=== PATIENT | male | born 1995 | race Caucasian/White ===

== ENCOUNTER 2016-05-24 17:39 | Emergency (ER) | payer OTHER ==
[~2016-05-24] VITALS: Ht 188 cm; Wt 91.0 kg
[2016-05-24 17:48] VITALS: TEMP 36.9; Ht 188 cm; Wt 91.0 kg
--- NOTE | 2016-05-24 18:59 | DIAGNOSTIC IMAGING REPORT ---
LEFT ANKLE 3 VIEWS CLINICAL HISTORY: Left ankle pain. Twisting injury. FINDINGS: 3 views of the left ankle are obtained. No prior studies are available for comparison at the time of dictation. The skeletal structures are well mineralized. No fracture is seen. The ankle mortise is intact. There is a small joint effusion. Mild soft tissue edema is noted, greatest overlying the lateral malleolus. IMPRESSION: Soft tissue swelling and joint effusion. No fracture is seen. Electronically signed by: Shakeel Rubin M.D. 05/24/2016 6:57 PM Dictated Date/Time: 05/24/2016 6:55 PM
--- NOTE | 2016-05-24 19:26 | EMERGENCY ROOM VISIT NOTE ---
ED Visit Note First contact with patient: 17:52 CHIEF COMPLAINT: Ankle pain HISTORY OF PRESENT ILLNESS: This 20-year-old male patient presents to the emergency department ambulatory after sustaining an injury to the left ankle and foot with a twisting, inversion motion last night while playing basketball. The patient states that he landed on an inverted ankle. The patient complains of pain along the outside of the ankle. The patient denies pain of the foot. The patient rates the pain as sharp and 6/10. The patient is able to bear weight on the foot, but states it is painful to do so. Constant pain, worse with movement, weight bearing, and the dependent position. No knee pain, the patient is able to move their toes. No numbness or weakness of the foot, no laceration. The patient has not had a previous fracture to this ankle. The patient has taken naproxen for the pain. The patient denies any other injury. REVIEW OF SYSTEMS: A 6 system review of systems was completed with positives and pertinent negatives listed in the HPI. ALLERGIES: No known drug allergies MEDICATIONS: No chronic medications PMH: No significant past medical history. SOCIAL HISTORY: The patient lives locally with roommates. Nonsmoker, admits to occasional alcohol use. PHYSICAL EXAM: Vital Signs: Reviewed Nurse's notes, vital signs stable. GENERAL : This is a 20-year-old male, no acute distress, but appears in pain, well- developed, well-nourished. MENTAL STATUS: Alert, oriented to person place and time, and cooperative. MUSCULOSKELETAL: The left ankle is swollen and tender over the lateral malleolus, but the skin is intact and there is no ligamentous instability. There is no fifth metatarsal tenderness. There is no tenderness over the rest of the foot. There is no calf or tibia/fibular tenderness. There is no visual deformity. The foot and toes are warm and well-perfused. Dorsalis pedis pulse 2+. Sensation to pain and light touch is intact. Capillary refill less than 2 seconds. RADIOGRAPHIC FINDINGS: LEFT ANKLE 3 VIEWS CLINICAL HISTORY: Left ankle pain. Twisting injury. FINDINGS: 3 views of the left ankle are obtained. No prior studies are available for comparison at the time of dictation. The skeletal structures are well mineralized. No fracture is seen. The ankle mortise is intact. There is a small joint effusion. Mild soft tissue edema is noted, greatest overlying the lateral malleolus. IMPRESSION: Soft tissue swelling and joint effusion. No fracture is seen. EMERGENCY DEPARTMENT COURSE: I examined the patient. X-rays of the left ankle were reviewed by myself and read by radiology and reveal no acute fractures. Gel ankle splint was applied to the ankle under my direction and the position was satisfactory. Neurovascular status was rechecked and intact. The patient was instructed on the use of crutches. He was given information for orthopedic follow-up if his pain persists. The patient verbalized understanding of my assessment and treatment plan and was discharged home in good condition. DIAGNOSIS: Left ankle sprain Current/Historical Medications No Active Prescriptions or Reported Meds Allergies Coded Allergies: No Known Allergies (Unverified , 05/24/16) Vital Signs Date Time Temp Pulse Resp B/P Pulse Ox O2 Delivery O2 Flow Rate FiO2 05/24/16 17:48 36.9 88 18 168/104 97 Room Air Departure Information Impression Primary Impression: Left ankle sprain Dispostion Home / Self-Care Condition GOOD Prescriptions No Active Prescriptions or Reported Meds Referrals No Doctor, Assigned (PCP) Camacho Infante M.D. Patient Instructions My [facility] Additional Instructions You have been treated in the Emergency Department for an Ankle sprain. For pain control, you can use the following [id number] medicines (if >12 yo): - Regular strength (325mg/tab) Tylenol (acetaminophen) 2 tabs every 4-6 hours as needed. Do not exceed 12 tablets in a 24 hour period. Avoid taking more than 4 grams (4000 mg) of Tylenol per day. This includes any other sources of acetaminophen you may take on a regular basis. - Regular strength (200 mg/tab) Advil (ibuprofen) 1-2 tabs every 4-6 hours as needed. Do not exceed a dose of 3200 mg per day. If this is a recent injury (<24 hrs), ice can be applied to the area of pain for the first 3 days to help decrease pain and inflammation. Keep the ankle brace/splint in place and use the crutches you have been provided to keep ALL weight off of the ankle until weight bearing is tolerable. Follow-up with orthopedics if you have persistent pain in 5-6 days. Return to the Emergency Department if your current symptoms worsen despite treatment course outlined above, or if you develop any of the following symptoms : intractable pain despite aforementioned treatment course or new onset of numbness or tingling of the foot. Problem Qualifiers Primary Impression: Left ankle sprain Encounter type: initial encounter Involved ligament of ankle: unspecified ligament Qualified Codes: S93.402A - Sprain of unspecified ligament of left ankle, initial encounter
[2016-05-24 19:30] VITALS: BP 154/91; PULSE 81; O2SAT 99
== END 2016-05-24 19:31 | disposition home or self-care (01) ==
LOC: C.EDB 17:42 → C.EDD 19:31
DX: S93.402A Sprain of unspecified ligament of left ankle, initial encounter (principal); Y93.67 Activity, basketball; Y99.8 Other external cause status